=== PATIENT | female | born 1980 | race Caucasian/White ===

== ENCOUNTER 2017-05-05 16:18 | Emergency (ER) | payer OTHER ==
[~2017-05-05] VITALS: Ht 162.6 cm; Wt 58.2 kg
[2017-05-05 17:03] VITALS: Ht 162.6 cm; Wt 58.2 kg
[2017-05-05] MEDS ORDERED: PROPARACAINE HCL 0.5% OP SOLN 15 ML BTL OP STA (17:09)
[2017-05-05] MEDS ORDERED: MULT-240 PO (17:26)
[2017-05-05] MEDS ORDERED: HRBLS PO (17:26)
[2017-05-05] MEDS ORDERED: NORCO 5/325MG HOME PACK PO ONE (18:00)
[2017-05-05] MEDS ORDERED: CIPROFLOXACIN HCL 0.3% OP SOLN 2.5 ML BTL OP ONE (18:00)
[2017-05-05 18:08] VITALS: BP 117/75; PULSE 68; TEMP 36.9; O2SAT 99
--- NOTE | 2017-05-05 20:39 | EMERGENCY ROOM VISIT NOTE ---
ED Visit Note First contact with patient: 17:08 CHIEF COMPLAINT: Eye pain HISTORY OF PRESENT ILLNESS: This 36-year-old female patient presents to the emergency department complaining of pain in the right eye past one day. The patient states she was sleeping in bed with her son, when he accidentally struck her in the right eye. There has been a constant moderate pain and irritation, redness and tearing in the eye. There is a mild blurring of vision at times and light bothers the eye. The vision has mildly been decreased over all. The patient does wear contacts. The patient rates the pain as dull and 6/ 10. The patient has not had previous injuries to this eye. Tetanus shot is reportedly up to date. She did go to urgent care clinic earlier today and was diagnosed with a corneal abrasion. They did not prescribe her any medication. REVIEW OF SYSTEMS: A 6 system review of systems was completed with positives and pertinent negatives listed in the HPI. ALLERGIES: No known allergies MEDICATIONS: No chronic medication PMH: Otherwise healthy SOCIAL HISTORY: Lives locally with family PHYSICAL EXAM: Vital Signs: Reviewed Nurse's notes, vital signs stable. Visual acuity 20/40 in the right and 20/25 in the left with glasses. GENERAL: This is a white female, in no acute distress, but who is uncomfortable from the eye problem. Well-developed well-nourished. EYES: The pupils are equal round and reactive to light and accommodation. EOMs are full and without tenderness. There is discharge of clear tears from the right eye which is injected. There is no foreign body visible under the eyelid even after lid eversion. Funduscopic exam reveals no hemorrhages, papilledema, or other abnormalities. No foreign body was seen embedded in the cornea under slit lamp exam. The cornea was clear and no hyphema was seen. Fluorescein uptake was observed with ultraviolet light significant for a linear corneal abrasion between 4:00 and 8: 00. There also appears to be superficial abrasion across the front of the cornea without ulceration. No obvious globe injury. EMERGENCY DEPARTMENT COURSE: I examined the patient. Alcaine 2 drops were placed in the patient's right eye. A slit lamp exam was performed as above. Ciloxan two drops was placed in the patient's right eye. The patient was discharged home in good condition with instructions as below. Current/Historical Medications Scheduled Herbals (Herbals), 1 EA PO UD Multiple Vitamins W/ Minerals (Womens One Daily), 1 TAB PO DAILY Allergies Coded Allergies: No Known Allergies (Unverified , 05/05/17) Vital Signs Date Time Temp Pulse Resp B/P (MAP) Pulse Ox O2 Delivery O2 Flow Rate FiO2 05/05/17 18:08 36.9 68 16 117/75 99 05/05/17 17:03 36.9 68 16 117/75 99 Room Air Medications Administered Medications (Trade) Dose Ordered Sig/Norris Route Start Time Stop Time Status Last Admin Dose Admin Proparacaine HCl (Alcaine 0.5% Oph Soln) 2 drops NOW STAT OP 05/05/17 17:09 05/05/17 17:10 DC 05/05/17 17:26 2 DROPS Ciprofloxacin HCl (Ciprofloxacin 0.3% Op Soln) 2 drops NOW ONCE OP 05/05/17 18:00 05/05/17 18:01 DC 05/05/17 18:04 2 DROPS Acetaminophen/ Hydrocodone Bitart ([place] 5/325mg Home Pack) 1 homepack UD ONCE PO 05/05/17 18:00 05/05/17 18:01 DC 05/05/17 18:04 1 HOMEPACK Departure Information Impression Primary Impression: Corneal abrasion, right Dispostion Home / Self-Care Condition [employer] Forms HOME CARE DOCUMENTATION FORM, IMPORTANT VISIT INFORMATION Patient Instructions My [facility] Additional Instructions You were seen and evaluated today on an emergency basis only. This is not a substitute for, or an effort to provide, complete comprehensive medical care. It is not possible to recognize and treat all injuries or illnesses in a single emergency department visit. For this reason it is recommended that you followup with your eye doctor in 2-3 days if symptoms persist For baseline pain relief you may alternate ibuprofen and acetaminophen every 4 hours for pain control. Take 600 mg ibuprofen (Advil) and then 4 hours later take 1000 mg acetaminophen (Tylenol). Do not take more than 3000 mg acetaminophen in a single day. [place] (hydrocodone/acetaminophen) 5/325 mg (homepack) every 6 hours as needed for worsening breakthrough pain. Do not drink or drive on [place]. This medication will likely make you tired. Do not take [place] and Tylenol at the same time as both contain acetaminophen. [place] may cause constipation. You may wish to take an [id number] stool softener like Colace if this occurs. Use Ciloxan Eye Drops: Instill 1-2 drops into the conjunctival sac every 2 hours while awake for 2 days and 1-2 drops every 4 hours while awake for the next 5 days You are welcome to return to the emergency department anytime with new, worsening, or concerning symptoms.
== END 2017-05-05 18:08 | disposition home or self-care (01) ==
LOC: C.EDB 16:54 → C.EDD 18:08
DX: S05.01XA Injury of conjunctiva and corneal abrasion without foreign body, right eye, initial encounter (principal); W50.0XXA Accidental hit or strike by another person, initial encounter